=== PATIENT | male | born 1975 | race Caucasian/White ===

== ENCOUNTER 2022-10-18 11:03 | Emergency (ER) | payer BC ==
[2022-10-18] MEDS ORDERED: SODIUM CHLORIDE 0.9% 1,000 ML IV ONE ×2 (11:45→13:19)
--- NOTE | 2022-10-18 11:47 | ED ---
General Adult HPI - General Chief complaint: Fall Stated complaint: fall, head laceration, medical clearance Time Seen by Provider: 10/18/22 11:29 Source: patient, RN notes reviewed Mode of arrival: ambulatory Limitations: no limitations - History of Present Illness Initial comments: 47-year-old male with a past medical history of EtOH abuse presents the emergency department with a chief complaint of fall. Patient reports that he was walking into [facility] for treatment when he tripped and fell and hit his head on the cement. He denies any loss consciousness. He denies any anticoagulant use. He denies any dizziness, lightheadedness, nausea, vomiting, headache. Patient reports he drank a half a pint of vodka prior to his intake evaluation at [facility]. Patient reports that he is a daily drinker. He reports that he has had seizures upon alcohol withdrawal. He denies any homicidal or suicidal ideation. He denies any visual or auditory hallucinations. - Related Data Home Medications Medication Instructions Recorded Confirmed Buprenorphine HCl/Naloxone HCl 1 film SL BID 10/18/22 10/18/22 [Suboxone 8 mg-2 mg Sl Film] Citalopram Hydrobromide [CeleXA] 20 mg PO DAILY 10/18/22 10/18/22 Levothyroxine Sodium [Levoxyl] 25 mcg PO AC-BRKFST 10/18/22 10/18/22 buPROPion SR [Wellbutrin SR] 150 mg PO HS 10/18/22 10/18/22 buPROPion SR [Wellbutrin SR] 300 mg PO QAM 10/18/22 10/18/22 Allergies Allergy/AdvReac Type Severity Reaction Status Date / Time iodine Allergy Anaphylaxis Verified 10/18/22 12:47 morphine Allergy Anaphylaxis Verified 10/18/22 12:47 Review of Systems ROS Statement: Those systems with pertinent positive or pertinent negative responses have been documented in the HPI. ROS Other: All systems not noted in ROS Statement are negative. Past Medical History Additional Past Medical History / Comment(s): ETOH abuse History of Any Multi-Drug Resistant Organisms: None Reported Past Surgical History: Orthopedic Surgery Past Psychological History: No Psychological Hx Reported Smoking Status: Current every day smoker, Vaper Past Alcohol Use History: Daily, Heavy Past Drug Use History: None Reported General Exam Limitations: no limitations General appearance: alert, in no apparent distress, other (He appears clinically intoxicated) Head exam: Present: normocephalic, normal inspection, other (1 cm circular abrasion to left eyebrow, no active bleeding or crepitus). Absent: atraumatic Eye exam: Present: normal appearance, PERRL, EOMI. Absent: scleral icterus, conjunctival injection, periorbital swelling ENT exam: Present: normal exam, mucous membranes moist Neck exam: Present: normal inspection. Absent: tenderness, meningismus, lymphadenopathy Respiratory exam: Present: normal lung sounds bilaterally. Absent: respiratory distress, wheezes, rales, rhonchi, stridor Cardiovascular Exam: Present: regular rate, normal rhythm, normal heart sounds. Absent: systolic murmur, diastolic murmur, rubs, gallop, clicks GI/Abdominal exam: Present: soft, normal bowel sounds. Absent: distended, tenderness, guarding, rebound, rigid Extremities exam: Present: normal inspection, full ROM, normal capillary refill. Absent: tenderness, pedal edema, joint swelling, calf tenderness Back exam: Present: normal inspection Neurological exam: Present: alert, oriented X3, CN II-XII intact Psychiatric exam: Present: normal affect, normal mood Skin exam: Present: warm, dry, intact, normal color. Absent: rash Course Vital Signs 10/18/22 10/18/22 10/18/22 11:05 11:20 12:00 Temperature 98 F Pulse Rate 91 90 86 Respiratory 18 12 12 Rate Blood Pressure 113/76 125/82 O2 Sat by Pulse 99 96 96 Oximetry 10/18/22 10/18/22 10/18/22 13:00 14:00 15:00 Temperature 98.6 F Pulse Rate 76 80 Respiratory 14 15 Rate Blood Pressure 115/72 123/73 117/76 O2 Sat by Pulse Oximetry - Reevaluation(s) Reevaluation #1: 10/18/22 14:00 he shouldn't reevaluated. Patient requesting to eat at this time. Second liter of fluids ordered. Reevaluation #2: 10/18/22 15:46 Patient ambulated around the department with a steady gait. He should was like to be discharged at this time.. Medical Decision Making - Medical Decision Making Was pt. sent in by a medical professional or institution (, PA, COMPATIBILITY TEST ENGINEER, urgent care, hospital, or custodial...) When possible be specific @ -[No] Did you speak to anyone other than the patient for history (EMS, parent, family, police, friend...)? What history was obtained from this source @ -[No] Did you review nursing and triage notes (agree or disagree)? Why? @ -[I reviewed and agree with nursing and triage notes] Were old charts reviewed (outside hosp., previous admission, EMS record, old EKG, old radiological studies, urgent care reports/EKG's, custodial records)? Report findings @ -[No old charts were reviewed] Differential Diagnosis (chest pain, altered mental status, abdominal pain women, abdominal pain men, vaginal bleeding, weakness, fever, dyspnea, syncope, headache, dizziness, GI bleed, back pain, seizure, CVA, palpatations, mental health, musculoskeletal)? @ -[not applicable] EKG interpreted by me (3pts min.). @ -[As above] X-rays interpreted by me (1pt min.). @ -[None done] CT interpreted by me (1pt min.). @ -CT brain and C-spine negative for any intracranial process U/S interpreted by me (1pt. min.). @ -[None done] What testing was considered but not performed or refused? (CT, X-rays, U/S, labs)? Why? @ -[None] What meds were considered but not given or refused? Why? @ -[None] Did you discuss the management of the patient with other professionals (professionals i.e. , PA, COMPATIBILITY TEST ENGINEER, lab, RT, psych nurse, social media content specialist, fish filleter, teacher, science and operations officer, nurse outreach case manager)? Give summary @ -[No] Was smoking cessation discussed for >3mins.? @ -[No] Was critical care preformed (if so, how long)? @ -[No] Were there social determinants of health that impacted care today? How? (H omelessness, low income, unemployed, alcoholism, drug addiction, transportation, low edu. Level, literacy, decrease access to med. care, [facility], rehab)? @ -[No] Was there de-escalation of care discussed even if they declined (Discuss DNR or withdrawal of care, Hospice)? DNR status @ -[No] What co-morbidities impacted this encounter? (DM, HTN, Smoking, COPD, CAD, Cancer, CVA, ARF, Chemo, Hep., AIDS, mental health diagnosis, sleep apnea, morbid obesity)? @ -[None] Was patient admitted / discharged? Hospital course, mention meds given and route, prescriptions, significant lab abnormalities, going to OR and other pertinent info. @ -Discharged. This is a 47-year-old male who presents to the emergency department with alcohol intoxication. Patient had a thorough history and physical exam performed while in the ED. Physical exam essentially unremarkable heart rate regular rate and rhythm, lungs clear to all physician bilaterally abdomen is soft and nontender, patient able to ambulate with a steady gait and no neuro deficits noted on physical exam. Patient had lab work and imaging performed which were essentially unremarkable. Etoh 359. Patient was found to liters of IV was able to tolerate food and oral fluids. I discussed the results in detail with the patient verbalized understanding and all questions were addressed. Return precautions were discussed at length. He was discharged in stable condition.. He was encouraged to follow-up with PCP in 1-2 days Undiagnosed new problem with uncertain prognosis? @ -[No] Drug Therapy requiring intensive monitoring for toxicity (Heparin, Nitro, Insulin, Cardizem)? @ -[No] Were any procedures done? @ -[No] Diagnosis/symptom? @ -alcohol intoxication Acute, or Chronic, or Acute on Chronic? @ -acute Uncomplicated (without systemic symptoms) or Complicated (systemic symptoms)? @ -uncomplicated Side effects of treatment? @ -[No] Exacerbation, Progression, or Severe Exacerbation? @ -[No] Poses a threat to life or bodily function? How? (Chest pain, [place], [place], pneumonia, PE, COPD, DKA, ARF, appy, cholecystitis, CVA, Diverticulitis, Homicidal, Suicidal, threat to staff... and all critical care pts) @ -low likelihood - Lab Data Result diagrams: 10/18/22 12:10 10/18/22 12:10 Lab Results 10/18/22 10/18/22 Range/Units 12:10 12:10 WBC 5.0 (3.8-10.6) k/uL RBC 4.41 (4.30-5.90) m/uL Hgb 13.8 (13.0-17.5) gm/dL Hct 41.3 (39.0-53.0) % MCV 93.5 (80.0-100.0) fL MCH 31.2 (25.0-35.0) pg MCHC 33.4 (31.0-37.0) g/dL RDW 14.4 (11.5-15.5) % Plt Count 253 (150-450) k/uL MPV 7.2 Neutrophils % 71 % Lymphocytes % 19 % Monocytes % 6 % Eosinophils % 1 % Basophils % 0 % Neutrophils # 3.5 (1.3-7.7) k/uL Lymphocytes # 1.0 (1.0-4.8) k/uL Monocytes # 0.3 (0-1.0) k/uL Eosinophils # 0.0 (0-0.7) k/uL Basophils # 0.0 (0-0.2) k/uL Sodium 142 (137-145) mmol/L Potassium 4.7 (3.5-5.1) mmol/L Chloride 103 (98-107) mmol/L Carbon Dioxide 27 (22-30) mmol/L Anion Gap 12 mmol/L BUN 14 (9-20) mg/dL Creatinine 0.72 (0.66-1.25) mg/dL Est GFR (CKD-EPI)AfAm >90 (>60 ml/min/1.73 sqM) Est GFR (CKD-EPI)NonAf >90 (>60 ml/min/1.73 sqM) Glucose 99 (74-99) mg/dL Calcium 8.2 L (8.4-10.2) mg/dL Total Bilirubin 0.4 (0.2-1.3) mg/dL AST 35 (17-59) U/L ALT 30 (4-49) U/L Alkaline Phosphatase 56 (38-126) U/L Total Protein 6.8 (6.3-8.2) g/dL Albumin 3.9 (3.5-5.0) g/dL Serum Alcohol 359 H* mg/dL Disposition Clinical Impression: Fall, Contusion, Alcohol abuse, Alcohol intoxication Disposition: HOME SELF-CARE Instructions (If sedation given, give patient instructions): Alcohol I ntoxication (ED), Abuse of Alcohol (ED) Additional Instructions: These return to the nearest emergency department if symptoms worsen or persist Is patient prescribed a controlled substance at d/c from ED?: No Referrals: Nonstaff,Physician [Primary Care Provider] - 1-2 days Time of Disposition: 15:48
[2022-10-18 12:30] LABS: Basophils % (A) 0 %; Eosinophils % (A) 1 %; HCT 41.3 % (39.0-53.0); HGB 13.8 gm/dL (13.0-17.5); Lymphocytes % (A) 19 %; MCH 31.2 pg (25.0-35.0); MCHC 33.4 g/dL (31.0-37.0); MCV 93.5 fL (80.0-100.0); Mean Platelet Volume 7.2; Monocytes # (A) 0.3 k/uL (0-1.0); Monocytes % (A) 6 %; Neutrophils # (A) 3.5 k/uL (1.3-7.7); Neutrophils % (A) 71 %; Platelet Count 253 k/uL (150-450); RBC 4.41 m/uL (4.30-5.90); RDW 14.4 % (11.5-15.5)
[2022-10-18 12:40] LABS: ALT 30 U/L (4-49); African American GFR (CKD) >90 (>60 ml/min/1.73 sqM); Albumin 3.9 g/dL (3.5-5.0); Anion Gap 12 mmol/L; Blood Urea Nitrogen 14 mg/dL (9-20); Calcium 8.2 mg/dL (8.4-10.2); Carbon Dioxide 27 mmol/L (22-30); Chloride 103 mmol/L (98-107); Glucose 99 mg/dL (74-99); Non-African American GFR(CKD) >90 (>60 ml/min/1.73 sqM); Sodium 142 mmol/L (137-145); Total Bilirubin 0.4 mg/dL (0.2-1.3); Total Protein 6.8 g/dL (6.3-8.2)
--- NOTE | 2022-10-18 12:45 | CT ---
EXAMINATION TYPE: CT brain cspine wo con CT DLP: 1385 mGycm, Automated exposure control for dose reduction was used. DATE OF EXAM: 10/18/2022 12:33 PM COMPARISON: None.. CLINICAL INDICATION:Male, 47 years old with history of pain; fall TECHNIQUE: Brain: Multiple axial CT images of the brain were obtained without IV contrast. Cspine: Axial CT images from the skull base to the inferior aspect of T2 we obtained without intraven ous contrast. Coronal and sagittal reformatted images were also reviewed. FINDINGS: Brain: Extra-axial spaces: No abnormal extra-axial fluid collections. Ventricular system: Within normal limits Cerebral parenchyma: No acute intraparenchymal hemorrhage or mass effect. The quinonez-white junction is well differentiated. Cerebellum: Unremarkable. Mass effect: No evidence of midline shift. Intracranial vasculature: unremarkable Soft tissues: Small left forearm soft tissue hematoma. Calvarium/osseous structures: No depressed skull fracture. Paranasal sinuses and mastoid air cells: Mastoid air cells are clear. 1 cm likely mucous retention cy st within the left maxillary sinus. Visualized orbits: Orbital contents are intact. Cervical spine: Fracture: None. Osseous structures: Unremarkable Vertebral alignment: Within normal limits. Spinal canal/Neural Foramina: No evidence of significant spinal canal narrowing. No evidence for sign ificant neural foraminal stenosis. Neck soft tissues: Prevertebral soft tissues are within normal limits. Other: The airway is patent. The lung apices are clear. IMPRESSION: 1. No acute intracranial process. 2. Small left forehead soft tissue hematoma. 3. No evidence of cervical spine fracture.
[2022-10-18 13:08] LABS: AST 35 U/L (17-59); Alkaline Phosphatase 56 U/L (38-126); Potassium 4.7 mmol/L (3.5-5.1)
[2022-10-18 13:11] LABS: Alcohol 359 mg/dL
[2022-10-18 14:08] VITALS: PULSE 80; RESP 15
[2022-10-18 15:54] VITALS: BP 117/76; TEMP 98.6
== END 2022-10-18 16:00 | disposition home or self-care (01) ==
LOC: EC 11:03
DX: S01.112A Laceration without foreign body of left eyelid and periocular area, initial encounter (principal); F10.129 Alcohol abuse with intoxication, unspecified; F17.290 Nicotine dependence, other tobacco product, uncomplicated; Z88.5 Allergy status to narcotic agent; Z88.8 Allergy status to other drugs, medicaments and biological substances; W01.0XXA Fall on same level from slipping, tripping and stumbling without subsequent striking against object, initial encounter
CPT/HCPCS: 12011; 36415; 70450; 72125; 80053; 80320; 85025; 96360; 99284